=== PATIENT | female | born 1950 | race Caucasian/White ===

== ENCOUNTER 2018-06-07 14:03 | Emergency (ER) | payer MEDICARE, OTHER, SELFPAY ==
[2018-06-07 14:13] VITALS: BP 147/94; PULSE 91; RESP 20; TEMP 37.1; O2SAT 97
--- NOTE | 2018-06-07 14:27 | PC.NURSE ---
appointment not till jul 15.
--- NOTE | 2018-06-07 14:34 | DI.CT.S_ITS ---
PROCEDURE: CT HEAD/BRAIN WO CON INDICATIONS: headaches TECHNIQUE: Noncontrast 4.5 mm thick angled axial sections acquired from the foramen magnum to the vertex, with coronal and sagittal reformats. For radiation dose reduction, the following was used: automated exposure control, adjustment of mA and/or kV according to patient size. COMPARISON: None. FINDINGS: Image quality: Diagnostic. CSF spaces: Basal cisterns are patent. No extra-axial fluid collections. Ventricles are mildly prominent. There is corresponding parenchymal volume loss. Brain: No midline shift. No intracranial masses or hemorrhage. Ponce-white matter interface is normal. Subtle areas of low attenuation within the periventricular and deep white matter of the supratentorial brain are present. Skull and face: Calvarium and visualized facial bones are intact, without suspicious lesions. Hyperostosis frontalis is incidentally noted. Sinuses: Visualized sinuses and mastoids are clear. IMPRESSION: 1. No acute intracranial hemorrhage. 2. Mild chronic small vessel ischemic changes and parenchymal volume loss. Dictated by: Carlos Myres M.D. on 06/07/2018 at 13:50 Approved by: Carlos Myers M.D. on 06/07/2018 at 13:51
--- NOTE | 2018-06-07 15:57 | ED.HA ---
HPI - Headache General Chief Complaint: Headache Stated Complaint: PAIN IN HEAD Time Seen by Provider: 06/07/18 14:34 Source: patient Mode of arrival: ambulatory Limitations: no limitations History of Present Illness HPI Narrative: 67-year-old nonsmoking female presents with a chief complaint of vague headaches off and on for the past 3 months. On occasion her headache is on the right side and at other times it is on the left but very rarely on both. She denies any provocation or palliation of her symptoms. She denies associated symptoms such as blurred vision, numbness or tingling. She denies any fever or chills. He denies any recent injury or neck pain. She does admit to grinding her teeth at night. Right secondly the patient complains of epigastric burning that is worse after certain types of food and improves with Pepcid. She denies any history of dyspepsia. MD Complaint: headache Onset (ago): month(s) Onset description: gradual Location: other Quality: aching, throbbing and intermittent Relieving factors: nothing Exacerbating factors: none Context: occurred at rest Associated symptoms: none Treatments prior to arrival: none Related Data Previous Rx's Medication Instructions Recorded esomeprazole magnesium [Nexium] 40 mg PO DAILY #30 cap 06/07/18 Allergies Allergy/AdvReac Type Severity Reaction Status Date / Time No Known Drug Allergies Allergy Verified 06/07/18 14:28 Review of Systems Review of Systems All systems reviewed & are unremarkable except as noted in HPI and below Constitutional Denies chills, Denies fever(s), Reports headache(s), Denies lethargy and Denies weakness Eyes Denies change in vision, Denies eye discharge, Denies irritation and Denies loss of vision ENT Ears, Nose, Mouth, and Throat: Denies change in voice, Reports headache(s), Denies neck pain and Denies sore throat Cardiovascular Denies chest pain, Denies irregular heart rhythm, Denies lightheadedness, Denies palpitations, Denies dyspnea, Denies dyspnea on exertion and Denies orthopnea Respiratory Denies cough, Denies dyspnea, Denies dyspnea on exertion and Denies wheezing Gastrointestinal Gastrointestinal: Denies abdominal pain, Denies change in bowel habits, Reports heartburn, Denies diarrhea, Denies nausea and Denies vomiting Genitourinary Denies hematuria, Denies flank pain, Denies urinary incontinence and Denies urinary urgency Musculoskeletal Denies neck pain Integumentary/Breasts Denies pruritus, Denies erythema, Denies rash and Denies wounds Neurologic Denies confusion, Reports headache(s), Denies loss of vision and Denies weakness Psychiatric Denies anxiety, Denies confusion, Denies depression, Denies homicidal ideation and Denies suicidal ideation Endocrine Denies palpitations Hematologic/Lymphatic Denies easy bruising Allergic/Immunologic Denies wheezing Exam Narrative Exam Narrative: GENERAL: This is a well-nourished, well-developed patient, in mild distress. HEAD: Atraumatic. Normocephalic. No temporal or scalp tenderness. EYES: Pupils equal round and reactive. Extraocular motions intact. No scleral icterus. No injection or drainage. ENT: Nose without bleeding, purulent drainage or septal hematoma. Throat without erythema, tonsillar hypertrophy or exudate. Uvula midline. Airway patent. NECK: Trachea midline. No JVD or lymphadenopathy. Supple, nontender, no meningeal signs. CARDIOVASCULAR: Regular rate and rhythm without murmurs, gallops, or rubs. RESPIRATORY: Clear to auscultation. Breath sounds equal bilaterally. No wheezes, rales, or rhonchi. GASTROINTESTINAL: Abdomen soft, non-tender, nondistended. No hepato-splenomegaly, or palpable masses. No guarding. EXTREMITIES: No clubbing, cyanosis, or edema. No joint tenderness, effusion, or edema noted. BACK: Nontender without deformity or crepitance. No flank tenderness. NEURO: AOx3. SKIN: No rash or erythema. Initial Vital Signs Initial Vital Signs: Vital Signs Temperature 98.8 F 06/07/18 14:13 Pulse Rate 91 H 06/07/18 14:13 Respiratory Rate 20 06/07/18 14:13 Blood Pressure 147/94 H 06/07/18 14:13 Pulse Oximetry 97 06/07/18 14:13 Const General: cooperative and well developed Nutritional Appearance: well nourished Orientation: alert, awake, oriented x3 and not confused [facility] Head: normocephalic and atraumatic Ears: external ears normal and TM's normal bilaterally Nose: external nose normal and No nasal discharge Face and sinus: sinuses nontender, face symmetric, no sinus tenderness and No dry mucous membranes Mouth: oral mucosae normal and moist mucous membranes Teeth and gingiva: dentition normal Throat: tonsils normal and uvula midline Eyes General: appearance normal, both eyes and all related structures Eyelids: eyelids normal Conjunctivae: conjunctivae normal Sclera: sclerae normal Pupils: PERRL EOM: EOM intact bilaterally Chest Chest: normal inspection of the chest Resp Effort & Inspection: normal respiratory effort, able to speak in complete sentences, no respiratory distress and no use of accessory muscles Auscultation: clear to auscultation bilaterally, no rales, no rhonchi and no wheezes GI Inspection: non-distended Palpation: soft, no hepatosplenomegaly, No guarding, No pulsatile mass and No tender Auscultation: normal bowel sounds Back/Spine/Pelvis Back: No CVA tenderness Cervical Spine: cervical ROM normal and No pain with cervical ROM Thoracic/Lumbar Spine: thoracic and lumbar spine normal to inspection Skin General: no rashes or lesions noted, No jaundice and No petechiae Neuro General: alert, oriented x3, gait normal and no focal motor deficits Speech: speech normal Other: NIH Stroke Scale 1a. LOC: Patient is alert and keenly responsive (0) 1b. LOC Questions: Patient answers both LOC questions accurately (0) 1c. LOC Commands: Patient performs both tasks correctly (0) 2. Best Gaze: Normal (0) 3. Visual: No visual loss (0) 4. Facial palsy: Normal symmetrical movements (0) 5. Motor arm: No drift (0) 6. Motor leg: No drift (0) 7. Limb ataxia: Absent (0) 8. Sensory: Normal (0) 9. Best language: No aphasia; normal (0) 10. Dysarthria: Normal (0) 11. Extinction and inattention: No abnormality (0) NIHSS: 0 Course Orders Ordered: ED Orders 06/07/18 14:34 CT head/brain wo con Stat Discontinued Medications Ketorolac Tromethamine (Toradol) 60 mg IM NOW ONE Stop: 06/07/18 15:58 Last Admin: 06/07/18 16:09 Dose: 60 mg Vital Signs - 8 hr 06/07/18 14:13 06/07/18 16:15 Temperature 98.8 F Pulse Rate 91 H 75 Respiratory Rate 20 16 Blood Pressure 147/94 H Blood Pressure [Right Arm] 148/71 H Pulse Oximetry 97 96 MDM - Headache Differential Diagnosis Differential diagnosis: Likely migraine, tension headache, subarachnoid hemorrhage, headache, meningitis, sinusitis and postconcussion syndrome Medical Records Attestation: I reviewed the patient's medical records. Lab Data Attestation: I reviewed the patient's lab results. Urine Dip Bedside Urine Glucose Negative Bedside Urine Bilirubin - Negative Bedside Urine Ketone - Negative Urine Specific [place] 1.015 Bedside Urine Occult Blood - Negative Bedside Urine pH 6.0 Bedside Urine Protein - Negative Bedside Urine Urobilinogen - Negative Bedside Urine Nitrite - Negative Bedside Urine Leukocytes - Negative Esterase Imaging Data CT scan - head: Radiologist's impression: [address] [address] [address] Scan Report Signed Patient: WILDER REYES MMR#: [id number] : 9Acct:[id number] Age/Sex: 67 / FDate of Service: 06/07/18 Loc: ED Accession Number: [id number] Procedure: CT head/brain wo con Ordering Provider: Tank Squires D.O. PROCEDURE: CT HEAD/BRAIN WO CON INDICATIONS: headaches TECHNIQUE: Noncontrast 4.5 mm thick angled axial sections acquired from the foramen magnum to the vertex, with coronal and sagittal reformats. For radiation dose reduction, the following was used: automated exposure control, adjustment of mA and/or kV according to patient size. COMPARISON: None. FINDINGS: Image quality: Diagnostic. CSF spaces: Basal cisterns are patent. No extra-axial fluid collections. Ventricles are mildly prominent. There is corresponding parenchymal volume loss. Brain: No midline shift. No intracranial masses or hemorrhage. Ponce-white matter interface is normal. Subtle areas of low attenuation within the periventricular and deep white matter of the supratentorial brain are present. Skull and face: Calvarium and visualized facial bones are intact, without suspicious lesions. Hyperostosis frontalis is incidentally noted. Sinuses: Visualized sinuses and mastoids are clear. IMPRESSION: 1. No acute intracranial hemorrhage. 2. Mild chronic small vessel ischemic changes and parenchymal volume loss. Dictated by: Carlos Myers M.D. on 06/07/2018 at 13:50 Approved by: Carlos Myers M.D. on 06/07/2018 at 13:51 [facility] Narrative Medical decision making narrative: 67-year-old female presents with many months of headache. She mentions that she is concerned about glioblastoma as her brother recently was diagnosed. She denies any injury nor focal neurologic findings. Head CT is unremarkable and makes ominous diagnosis less likely. Patient has had epigastric pain which she describes as burning and associated with certain types of food and improvement with Pepcid. This is very consistent with dyspepsia. Patient would prefer to try a new type of antacid medication for her abdominal pain and is very happy about having a negative head CT for evaluation of her headaches. She would prefer to hold off on any further evaluation at this point time. She has been given return precautions Discharge Plan Departure Patient Disposition: Home Clinical Impression: Headache, Dyspepsia Discharge Date/Time: 06/07/18 16:31 Interventions: ED Discharge Assessment Last Done: 06/07/18 16:29 Instructions: DI for Dyspepsia Activity Restrictions/Additional Instructions: *You have been diagnosed with [ chronic headache dyspepsia ] *What to do: *Take medications as directed *Follow up with your primary care provider in 2-3 days, call for an appointment. Let them know you were seen in the Emergency Department and that we ask that you be seen in follow up *Return to ER if you should have any new, worsening or concerning symptoms Prescriptions: New esomeprazole magnesium [Nexium] 40 mg capsule,delayed release(DR/EC) 40 mg PO DAILY Qty: 30 RF: 0 Referrals: Luigi Lopez MD [Physician] -
[2018-06-07] MEDS: KETOROLAC 60 MG/2 ML VIAL IM (16:09)
[2018-06-07 16:15] VITALS: BP 148/71; PULSE 75; RESP 16; O2SAT 96
--- NOTE | 2018-06-07 19:54 | ED_ITS ---
HPI - Headache General Chief Complaint: Headache Stated Complaint: PAIN IN HEAD Time Seen by Provider: 06/07/18 14:34 Source: patient Mode of arrival: ambulatory Limitations: no limitations History of Present Illness HPI Narrative: 67-year-old nonsmoking female presents with a chief complaint of vague headaches off and on for the past 3 months. On occasion her headache is on the right side and at other times it is on the left but very rarely on both. She denies any provocation or palliation of her symptoms. She denies associated symptoms such as blurred vision, numbness or tingling. She denies any fever or chills. He denies any recent injury or neck pain. She does admit to grinding her teeth at night. Right secondly the patient complains of epigastric burning that is worse after certain types of food and improves with Pepcid. She denies any history of dyspepsia. MD Complaint: headache Onset (ago): month(s) Onset description: gradual Location: other Quality: aching, throbbing and intermittent Relieving factors: nothing Exacerbating factors: none Context: occurred at rest Associated symptoms: none Treatments prior to arrival: none Related Data Previous Rx's Medication Instructions Recorded esomeprazole magnesium [Nexium] 40 mg PO DAILY #30 cap 06/07/18 Allergies Allergy/AdvReac Type Severity Reaction Status Date / Time No Known Drug Allergies Allergy Verified 06/07/18 14:28 Review of Systems Review of Systems All systems reviewed & are unremarkable except as noted in HPI and below Constitutional Denies chills, Denies fever(s), Reports headache(s), Denies lethargy and Denies weakness Eyes Denies change in vision, Denies eye discharge, Denies irritation and Denies loss of vision ENT Ears, Nose, Mouth, and Throat: Denies change in voice, Reports headache(s), Denies neck pain and Denies sore throat Cardiovascular Denies chest pain, Denies irregular heart rhythm, Denies lightheadedness, Denies palpitations, Denies dyspnea, Denies dyspnea on exertion and Denies orthopnea Respiratory Denies cough, Denies dyspnea, Denies dyspnea on exertion and Denies wheezing Gastrointestinal Gastrointestinal: Denies abdominal pain, Denies change in bowel habits, Reports heartburn, Denies diarrhea, Denies nausea and Denies vomiting Genitourinary Denies hematuria, Denies flank pain, Denies urinary incontinence and Denies urinary urgency Musculoskeletal Denies neck pain Integumentary/Breasts Denies pruritus, Denies erythema, Denies rash and Denies wounds Neurologic Denies confusion, Reports headache(s), Denies loss of vision and Denies weakness Psychiatric Denies anxiety, Denies confusion, Denies depression, Denies homicidal ideation and Denies suicidal ideation Endocrine Denies palpitations Hematologic/Lymphatic Denies easy bruising Allergic/Immunologic Denies wheezing Exam Narrative Exam Narrative: GENERAL: This is a well-nourished, well-developed patient, in mild distress. HEAD: Atraumatic. Normocephalic. No temporal or scalp tenderness. EYES: Pupils equal round and reactive. Extraocular motions intact. No scleral icterus. No injection or drainage. ENT: Nose without bleeding, purulent drainage or septal hematoma. Throat without erythema, tonsillar hypertrophy or exudate. Uvula midline. Airway patent. NECK: Trachea midline. No JVD or lymphadenopathy. Supple, nontender, no meningeal signs. CARDIOVASCULAR: Regular rate and rhythm without murmurs, gallops, or rubs. RESPIRATORY: Clear to auscultation. Breath sounds equal bilaterally. No wheezes , rales, or rhonchi. GASTROINTESTINAL: Abdomen soft, non-tender, nondistended. No hepato-splenomegaly , or palpable masses. No guarding. EXTREMITIES: No clubbing, cyanosis, or edema. No joint tenderness, effusion, or edema noted. BACK: Nontender without deformity or crepitance. No flank tenderness. NEURO: AOx3. SKIN: No rash or erythema. Initial Vital Signs Initial Vital Signs: Vital Signs Temperature 98.8 F 06/07/18 14:13 Pulse Rate 91 H 06/07/18 14:13 Respiratory Rate 20 06/07/18 14:13 Blood Pressure 147/94 H 06/07/18 14:13 Pulse Oximetry 97 06/07/18 14:13 Const General: cooperative and well developed Nutritional Appearance: well nourished Orientation: alert, awake, oriented x3 and not confused [facility] Head: normocephalic and atraumatic Ears: external ears normal and TM's normal bilaterally Nose: external nose normal and No nasal discharge Face and sinus: sinuses nontender, face symmetric, no sinus tenderness and No dry mucous membranes Mouth: oral mucosae normal and moist mucous membranes Teeth and gingiva: dentition normal Throat: tonsils normal and uvula midline Eyes General: appearance normal, both eyes and all related structures Eyelids: eyelids normal Conjunctivae: conjunctivae normal Sclera: sclerae normal Pupils: PERRL EOM: EOM intact bilaterally Chest Chest: normal inspection of the chest Resp Effort & Inspection: normal respiratory effort, able to speak in complete sentences, no respiratory distress and no use of accessory muscles Auscultation: clear to auscultation bilaterally, no rales, no rhonchi and no wheezes GI Inspection: non-distended Palpation: soft, no hepatosplenomegaly, No guarding, No pulsatile mass and No tender Auscultation: normal bowel sounds Back/Spine/Pelvis Back: No CVA tenderness Cervical Spine: cervical ROM normal and No pain with cervical ROM Thoracic/Lumbar Spine: thoracic and lumbar spine normal to inspection Skin General: no rashes or lesions noted, No jaundice and No petechiae Neuro General: alert, oriented x3, gait normal and no focal motor deficits Speech: speech normal Other: NIH Stroke Scale 1a. LOC: Patient is alert and keenly responsive (0) 1b. LOC Questions: Patient answers both LOC questions accurately (0) 1c. LOC Commands: Patient performs both tasks correctly (0) 2. Best Gaze: Normal (0) 3. Visual: No visual loss (0) 4. Facial palsy: Normal symmetrical movements (0) 5. Motor arm: No drift (0) 6. Motor leg: No drift (0) 7. Limb ataxia: Absent (0) 8. Sensory: Normal (0) 9. Best language: No aphasia; normal (0) 10. Dysarthria: Normal (0) 11. Extinction and inattention: No abnormality (0) NIHSS: 0 Course Orders Ordered: ED Orders 06/07/18 14:34 CT head/brain wo con Stat Discontinued Medications Ketorolac Tromethamine (Toradol) 60 mg IM NOW ONE Stop: 06/07/18 15:58 Last Admin: 06/07/18 16:09 Dose: 60 mg Vital Signs - 8 hr 06/07/18 14:13 06/07/18 16:15 Temperature 98.8 F Pulse Rate 91 H 75 Respiratory Rate 20 16 Blood Pressure 147/94 H Blood Pressure [Right Arm] 148/71 H Pulse Oximetry 97 96 MDM - Headache Differential Diagnosis Differential diagnosis: Likely migraine, tension headache, subarachnoid hemorrhage, headache, meningitis, sinusitis and postconcussion syndrome Medical Records Attestation: I reviewed the patient's medical records. Lab Data Attestation: I reviewed the patient's lab results. Urine Dip Bedside Urine Glucose Negative Bedside Urine Bilirubin - Negative Bedside Urine Ketone - Negative Urine Specific [place] 1.015 Bedside Urine Occult Blood - Negative Bedside Urine pH 6.0 Bedside Urine Protein - Negative Bedside Urine Urobilinogen - Negative Bedside Urine Nitrite - Negative Bedside Urine Leukocytes - Negative Esterase Imaging Data CT scan - head: Radiologist's impression: [address] [address] [address] Scan Report Signed Patient: WILDER REYES MMR#: [id number] : 9Acct:[id number] Age/Sex: 67 / FDate of Service: 06/07/18 Loc: ED Accession Number: [id number] Procedure: CT head/brain wo con Ordering Provider: Tank Squires D.O. PROCEDURE: CT HEAD/BRAIN WO CON INDICATIONS: headaches TECHNIQUE: Noncontrast 4.5 mm thick angled axial sections acquired from the foramen magnum to the vertex, with coronal and sagittal reformats. For radiation dose reduction, the following was used: automated exposure control, adjustment of mA and/or kV according to patient size. COMPARISON: None. FINDINGS: Image quality: Diagnostic. CSF spaces: Basal cisterns are patent. No extra-axial fluid collections. Ventricles are mildly prominent. There is corresponding parenchymal volume loss. Brain: No midline shift. No intracranial masses or hemorrhage. Ponce-white matter interface is normal. Subtle areas of low attenuation within the periventricular and deep white matter of the supratentorial brain are present. Skull and face: Calvarium and visualized facial bones are intact, without suspicious lesions. Hyperostosis frontalis is incidentally noted. Sinuses: Visualized sinuses and mastoids are clear. IMPRESSION: 1. No acute intracranial hemorrhage. 2. Mild chronic small vessel ischemic changes and parenchymal volume loss. Dictated by: Carlos Myers M.D. on 06/07/2018 at 13:50 Approved by: Carlos Myers M.D. on 06/07/2018 at 13:51 [facility] Narrative Medical decision making narrative: 67-year-old female presents with many months of headache. She mentions that she is concerned about glioblastoma as her brother recently was diagnosed. She denies any injury nor focal neurologic findings. Head CT is unremarkable and makes ominous diagnosis less likely. Patient has had epigastric pain which she describes as burning and associated with certain types of food and improvement with Pepcid. This is very consistent with dyspepsia. Patient would prefer to try a new type of antacid medication for her abdominal pain and is very happy about having a negative head CT for evaluation of her headaches. She would prefer to hold off on any further evaluation at this point time. She has been given return precautions Discharge Plan Departure Patient Disposition: Home Clinical Impression: Headache, Dyspepsia Discharge Date/Time: 06/07/18 16:31 Interventions: ED Discharge Assessment Last Done: 06/07/18 16:29 Instructions: DI for Dyspepsia Activity Restrictions/Additional Instructions: *You have been diagnosed with [ chronic headache dyspepsia ] *What to do: *Take medications as directed *Follow up with your primary care provider in 2-3 days, call for an appointment. Let them know you were seen in the Emergency Department and that we ask that you be seen in follow up *Return to ER if you should have any new, worsening or concerning symptoms Prescriptions: New esomeprazole magnesium [Nexium] 40 mg capsule,delayed release(DR/EC) 40 mg PO DAILY Qty: 30 RF: 0 Referrals: Luigi Lopez MD [Physician] -
== END 2018-06-07 16:31 | disposition home or self-care (01) ==
PROVIDERS: Emergency Provider Emergency Medicine
DX: R51 Headache (principal); R10.13 Epigastric pain
CPT/HCPCS: 70450; 81003; 96372; 99282; 99284; J1885

== ENCOUNTER → 2019-04-04 14:36 | Outpatient (CLI) | payer MEDICARE, OTHER, SELFPAY ==
[2019-04-04 14:54] LABS: Add Manual Diff / Slide Review NO; Basophils Absolute Auto 100 /uL (0-100); Basophils Percent Auto 1.1 % (0-2); Eosinophils Absolute Auto 300 /uL (0-450); Eosinophils Percent Auto 3.1 % (2-4); Hemoglobin 14.9 g/dL (12.0-16.0); Lymphocytes Absolute Auto 2300 /uL (1100-4500); Lymphocytes Percent Auto 26.9 % (25-40); Mean Corpuscular HGB Conc 33.2 % (30-36); Mean Corpuscular Volume 87.4 fL (80-100); Monocytes Absolute Auto 800 /uL (0-900); Neutrophils Absolute Auto 5200 /uL (1500-7000); Neutrophils Percent Auto 59.9 % (50-75); Platelet Count 382 X10^3/uL (150-400); Red Blood Cell Count 5.15 X10^6/uL (4.0-5.2); Red Cell Distribution Width 14.3 % (11.6-14.8); White Blood Cell Count 8.6 X10^3/uL (4.5-11.0)
[2019-04-04 16:22] LABS: Alanine Aminotransferase 46 IU/L (9-52); Albumin 4.5 g/dL (3.5-5.0); Albumin Globulin Ratio 1.5 (1.0-2.8); Alkaline Phosphatase 152 U/L (38-126); Aspartate Aminotransferase 30 IU/L (14-36); BUN Creatinine Ratio 18.6 (6-22); Bilirubin Total 0.7 mg/dL (0.2-1.3); Blood Urea Nitrogen 13 mg/dL (7-17); Calcium 10.1 mg/dL (8.4-10.2); Carbon Dioxide 30 mmol/L (22-32); Chloride 101 mmol/L (98-107); Cholesterol 254 mg/dL (140-199); Estimated Glomerular Filt Rate > 60.0 mL/min (>60); Glucose 145 mg/dL (80-110); HDL Cholesterol 49 mg/dL (40-60); HEMOLYSIS < 15 (0-50); LDL Cholesterol Calculated 181 mg/dL (<100); Potassium 4.6 mmol/L (3.4-5.1); Sodium 141 mmol/L (137-145); Total Protein 7.5 g/dL (6.3-8.2); Triglycerides 122 mg/dL (35-150)
[2019-04-04 16:49] LABS: Thyroid Stimulating Hormone 8.97 uIU/mL (0.47-4.68)
== END ==
PROVIDERS: Visit Provider Hospitalist
DX: I10 Essential (primary) hypertension (principal); E03.9 Hypothyroidism, unspecified
CPT/HCPCS: 36415; 80053; 80061; 84443; 85025